=== PATIENT | female | born 1985 | race African-American/Black ===

== ENCOUNTER 2022-03-25 01:45 | Inpatient (IN) | payer SELFPAY ==
[2022-03-25] MEDS ORDERED: DIPHENHYDRAMINE 50 MG/ML VIAL ONE (02:04)
[2022-03-25] MEDS ORDERED: LORazepam 2 MG/ML VIAL ONE (02:04)
[2022-03-25 02:35] LABS: Absolute Lymphocytes (CBC) 1.1 K/uL (0.7-4.9); Hematocrit 37.9 % (36.0-45.0); Lymphocytes % 5.9 % (15.3-44.8); RBC Red Blood Cell Count 4.17 M/uL (3.86-4.86)
[2022-03-25 02:43] LABS: Protime INR 1.15
[2022-03-25 03:10] LABS: ALT/SGPT 42 U/L (12-78); AST/SGOT 160 U/L (15-37); Albumin 4.3 g/dL (3.4-5.0); Alkaline Phosphatase 66 U/L (45-117); BUN Blood Urea Nitrogen 21 mg/dL (7-18); Bicarbonate 25 mmol/L (21-32); Bilirubin Direct 0.4 mg/dL (0-0.2); Bilirubin Total 1.8 mg/dL (0.2-1.0); Glucose Level 94 mg/dL (74-106); Potassium 3.7 mmol/L (3.5-5.1); Protein, Total 8.3 g/dL (6.4-8.2); Sodium Level 137 mmol/L (136-145)
[2022-03-25] MEDS ORDERED: NA CHLORIDE 0.9% 1,000 ML ONE ×3 (04:55→14:37)
[2022-03-25 06:05] LABS: SARS-COV-2 RT PCR NEGATIVE (NEGATIVE)
--- NOTE | 2022-03-25 06:51 | ER ---
Nurse's Notes [facility] Name: Himanshu Salamanca Age: 36 yrs Sex: Female : 1985 Arrival Date: 03/25/2022 Time: 01:48 Bed 17 Private MD: Diagnosis: Altered mental status, unspecified;Rhabdomyolysis Presentation: 03/25 01:48 Chief complaint: EMS states: "She was [place]. She has cuts all over tw5 her feet and hands. It seems that she has been walking for a very long time.". Coronavirus screen: unknown. Ebola Screen: Unable to complete the Ebola screening because:. Initial Sepsis Screen: Does the patient meet any 2 criteria? HR > 90 bpm. Does the patient have a suspected source of infection? Yes: Skin breakdown/wound. Risk Assessment: Do you want to hurt yourself or someone else? Unable to obtain. Onset of symptoms is unknown. 01:48 Method Of Arrival: EMS: [facility] tw 01:48 Acuity: OMID 2 tw5 Triage Assessment: 01:52 General: Appears uncomfortable, unkempt, Behavior is agitated, anxious, restless, tw5 uncooperative. Pain: Unable to use pain scale. Patient is disoriented. Neuro: Level of Consciousness is confused. LABORER DEMOLITION: 01:52 unable to obtain tw5 Historical: - Allergies: 09:15 No Known Allergies; ko - Home Meds: :52 Unable to obtain [Active]; tw5 - PMHx: 07:29 Depressive disorder; Anxiety; ko 09:15 PTSD; ko - PSHx: :52 Unable to Obtain; tw5 - Immunization history:: Unable to assess. - Social history:: Smoking status: unknown. Screenin:21 Abuse screen: Unable to assess. Nutritional screening: Unable to assess, but given EMS otf report, yes.. Tuberculosis screening: Unable to assess. Fall Risk None identified. Assessment: 01:55 General: Patient placed in paper gown. tw5 02:01 Reassessment: The pt arrived via EMS \\T\\ 0130. The charge nurse was at bedside and helped otf get the pt in bed. The pt became agitated when registration came into the room, as at that time, the pt was sitting on the floor, in the corner. The MD placed orders that the charge nurse has and the float nurse is at bedside to assist. The dye house helper is also at bedside. 03:17 Reassessment: I've asked the charge nurse for report on the pt. She is sleeping and on otf the bedside monitor. 04:05 Reassessment: Given that the charge nurse is continuing to be needed in Trauma, I have otf gleaned as much info as possible, from the chart. The pt is sleeping with clear, even breaths. The medication was effective and I was able to perform the EKG on the pt. She has a drsg to her right hand and SLs bilaterally to her arms. Purportedly, the pt was "walking around the beach" for several days and people became concerned. I am unsure who called EMS, but she was brought via EMS. When she came in, she was emotionally labile, frightened, climbing out of the bed and cowering in the corner. The MD witnessed this and meds were ordered and given, by the charge nurse. The pt did not sound oriented, but it would be impossible to ascertain, when she was in that emotional state. Thankfully, the medication is still effective and she is resting well. She remains on the bedside monitor. 06:24 General: Attempted to call the father Monty Tucker [phone]. tw5 06:26 Reassessment: The pt is much more lucid, although, not wanting to talk very much. When otf asked where is she from, she responded,"I don't even know." She did tell me that she has two children. She is reluctant to talk, but calm and cooperative with getting labs, etc. I told her that we need a urine specimen and we provided her with a bsc, for ease. Vital Signs: 01:48 BP 136 / 83; Pulse 119; Pulse Ox 98% on R/A; tw5 03:18 BP 103 / 64; Pulse 97; Resp 16; Pulse Ox 100% on R/A; otf 04:25 BP 109 / 72; Pulse 94; Resp 14; Pulse Ox 100% on R/A; Pain 0/10; otf 05:09 BP 106 / 74; Pulse 95; Resp 14; Temp 99(TE); Pulse Ox 100% ; otf 06:14 BP 110 / 71; Pulse 89; Resp 15; Pulse Ox 100% on R/A; ke1 09:17 BP 120 / 85; Pulse 102; Resp 18; Pulse Ox 99% on R/A; ko 01:48 blood glucose 196 tw5 ED Course: 01:48 Patient arrived in ED. tw5 01:52 Triage completed. tw5 01:52 John Ayala MD is Attending Physician. mh7 01:52 Arm band placed on right wrist. tw5 02:24 Patient has correct armband on for positive identification. Placed in gown. Bed in low tw5 position. Side rails up X2. personnel monitor on. Pulse ox on. NIBP on. Door closed. Noise minimized. Moved to private room. Warm blanket given. Verbal reassurance given. 02:24 Initial lab(s) drawn, by me, sent to lab. Inserted saline lock: 20 gauge in right tw5 antecubital area, using aseptic technique. Blood collected. 02:24 Acetaminophen Sent. tw5 02:24 Basic Metabolic Panel Sent. tw5 02:25 CBC with Diff Sent. tw5 02:25 ETOH Level Sent. tw5 02:25 Salicylate Sent. tw5 02:25 Ptt, Activated Sent. tw5 02:25 PT-INR Sent. tw5 02:25 Hepatic Function Sent. tw5 02:53 CT Head Brain wo Cont In Process Unspecified. EDMS 04:05 Coby Bautista, RN is Primary Nurse. otf 04:22 No provider procedures requiring assistance completed. otf 05:08 COVID-19/FLU A+B (Document "Date of Onset" if Symptomatic) Sent. otf 05:08 CPK Sent. otf 06:25 called the [facility] ([place] in attempt to get some patient contact information/ eb information received given to charge and registration to update patient demographic. 06:25 AMMONIA Sent. otf 06:31 AMMONIA Sent. otf 06:48 Blood Culture Adult (2) Sent. otf 06:50 Jarrett Johnson MD is Hospitalizing Provider. 7 09:17 No apparent distress. Appears to be sleeping. ko Administered Medications: 01:57 CANCELLED (Physician Discretion): HALdol (haloperidol) 5 mg IVP once tw5 02:25 Drug: Benadryl (diphenhydrAMINE) 50 mg Route: IVP; Site: left antecubital; tw5 04:24 Follow up: Response: No adverse reaction; Anxiety decreased otf 02:25 Drug: Ativan (LORazepam) 2 mg Route: IVP; Site: left antecubital; tw5 04:24 Follow up: Response: Anxiety decreased otf 05:08 Drug: NS 0.9% 1000 ml Route: IV; Rate: 1000 ml; Site: left forearm; otf 06:25 Follow up: IV Status: Completed infusion otf 06:25 Drug: NS 0.9% 1000 ml Route: IV; Rate: 1000 ml; Site: left antecubital; otf 10:51 Follow up: IV Status: Completed infusion ko 10:51 Drug: Rocephin (cefTRIAXone) 1 grams Route: IV; Rate: per protocol; Site: right ko antecubital; 14:40 Follow up: IV Status: Completed infusion ko Outcome: 04:22 Condition: stable otf 06:50 Decision to Hospitalize by Provider. [facility] 22:09 Patient left the ED. kd3 Signatures: Dispatcher [employer] EDMS Elena Duran Maurice, MD MD [facility] Sahara Alvarado Geri Espino RN RN 3 Coby Bautista RN RN bo Au-Stager, Heather, RN RN Dinesh Rosales RN RN ke1 Corrections: (The following items were deleted from the chart) 01:52 01:52 Allergies: Ibuprofen; 07:31 01:52 PMHx: Unable to Obtain; 09:17 01:52 Allergies: Unable to obtain; 09:17 07:29 PMHx: Obesity; ko 09:17 09:15 Allergies: PTSD; ko ko
--- NOTE | 2022-03-25 06:51 | EDPHYS ---
Physician Documentation [facility] Name: Himanshu Salamanca Age: 36 yrs Sex: Female : 1985 Arrival Date: 03/25/2022 Time: 01:48 Bed 17 Private MD: ED Physician John Ayala HPI: 03/25 02:12 This 36 yrs old Female presents to ER via EMS with complaints of Altered Mental Status. mh7 02:12 The patient presents with agitation, confusion. mh7 02:12 Onset: The symptoms/episode began/occurred at an unknown time. Possible causes: mh7 unknown. Associated signs and symptoms: Pertinent positives: agitation. Current symptoms: In the emergency department the patient's symptoms are unchanged from the initial presentation. Per EMS, patient found wandering around beach. She appeared to be agitated and combative.. DIRECTOR GEOTHERMAL OPERATIONS: 01:52 unable to obtain tw5 Historical: - Allergies: 09:15 No Known Allergies; ko - Home Meds: :52 Unable to obtain [Active]; tw5 - PMHx: 07:29 Depressive disorder; Anxiety; ko 09:15 PTSD; ko - PSHx: 01:52 Unable to Obtain; tw5 - Immunization history:: Unable to assess. - Social history:: Smoking status: unknown. ROS: 02:12 Unable to obtain ROS due to patient being uncooperative. mh7 Exam: 02:12 Constitutional: This is a well developed, well nourished patient who is awake, alert, mh7 and in no acute distress. Head/Face: Normocephalic, atraumatic. Eyes: Pupils equal round and reactive to light, extra-ocular motions intact. Lids and lashes normal. Conjunctiva and sclera are non-icteric and not injected. Cornea within normal limits. Periorbital areas with no swelling, redness, or edema. Neck: Trachea midline, no thyromegaly or masses palpated, and no cervical lymphadenopathy. Supple, full range of motion without nuchal rigidity, or vertebral point tenderness. No Meningismus. Chest/axilla: Normal chest wall appearance and motion. Nontender with no deformity. No lesions are appreciated. 02:12 Respiratory: Lungs have equal breath sounds bilaterally, clear to auscultation and percussion. No rales, rhonchi or wheezes noted. No increased work of breathing, no retractions or nasal flaring. Abdomen/GI: Soft, non-tender, with normal bowel sounds. No distension or tympany. No guarding or rebound. No evidence of tenderness throughout. Back: No spinal tenderness. No costovertebral tenderness. Full range of motion. Skin: Warm, dry with normal turgor. Normal color with no rashes, no lesions, and no evidence of cellulitis. MS/ Extremity: Pulses equal, no cyanosis. Neurovascular intact. Full, normal range of motion. 02:12 Constitutional: The patient appears anxious, restless. 02:12 Cardiovascular: Rate: tachycardic, Rhythm: regular, Pulses: no pulse deficits are appreciated, Heart sounds: normal, normal S1and S2, Edema: is not appreciated, JVD: is not appreciated. 02:12 Neuro: Orientation: unable to test, the patient refuses to cooperate, Mentation: unable to test, the patient refuses to cooperate, Memory: unable to test, the patient refuses to cooperate, Cranial nerves: unable to test, the patient refuses to cooperate, Cerebellar function: unable to test, the patient refuses to cooperate, Motor: is normal, Sensation: no obvious gross deficits, Gait: not tested. seizure activity, is not displayed by the patient, Abnormal movements: there are no abnormal movements. 02:12 Psych: Behavior/mood is anxious, aggressive, uncooperative, Affect is animated, Judgement / Insight is impaired. Vital Signs: 01:48 BP 136 / 83; Pulse 119; Pulse Ox 98% on R/A; tw5 03:18 BP 103 / 64; Pulse 97; Resp 16; Pulse Ox 100% on R/A; otf 04:25 BP 109 / 72; Pulse 94; Resp 14; Pulse Ox 100% on R/A; Pain 0/10; otf 05:09 BP 106 / 74; Pulse 95; Resp 14; Temp 99(TE); Pulse Ox 100% ; otf 06:14 BP 110 / 71; Pulse 89; Resp 15; Pulse Ox 100% on R/A; ke1 09:17 BP 120 / 85; Pulse 102; Resp 18; Pulse Ox 99% on R/A; ko 01:48 blood glucose 196 tw5 MDM: 06:49 Differential Diagnosis: electrolyte abnormality, alcohol intoxication, hypoglycemia, mh7 intracranial bleed, overdose, UTI, volume depletion. Data reviewed: vital signs, nurses notes, EMS record, lab test result(s), CBC, electrolytes, Flu: negative EKG, radiologic studies, CT scan. Data interpreted: Pulse oximetry: on room air is 100 %. Interpretation: normal. Counseling: I had a detailed discussion with the patient and/or guardian regarding: the historical points, exam findings, and any diagnostic results supporting the discharge/admit diagnosis, lab results, radiology results, the need for further work-up and treatment in the hospital. Response to treatment: the patient's symptoms have mildly improved after treatment. 06:50 Patient medically screened. [facility] 03/25 02:07 Order name: Acetaminophen; Complete Time: 03:12 [facility] 03/25 02:07 Order name: Basic Metabolic Panel; Complete Time: 03:12 [facility] 03/25 02:07 Order name: CBC with Diff; Complete Time: 03:12 [facility] 03/25 02:07 Order name: ETOH Level; Complete Time: 03:12 [facility] 03/25 02:07 Order name: Hepatic Function; Complete Time: 03:12 [facility] 03/25 02:07 Order name: PT-INR; Complete Time: 03:12 [facility] 03/25 02:07 Order name: Ptt, Activated; Complete Time: 03:12 [facility] 03/25 02:07 Order name: Salicylate; Complete Time: 03:12 [facility] 03/25 02:07 Order name: Urine Drug Screen; Complete Time: 19:47 [facility] 03/25 04:48 Order name: CPK; Complete Time: 06:02 [facility] 03/25 04:57 Order name: COVID-19/FLU A+B (Document "Date of Onset" if Symptomatic); Complete Time: [facility] 06:03/25 05:32 Order name: AMMONIA; Complete Time: 06:48 [facility] 03/25 06:24 Order name: Urine Culture [facility] 03/25 06:29 Order name: Blood Culture Adult (2) [facility] 03/25 02:11 Order name: CT Head Brain wo Cont [facility] 03/25 10:19 Order name: Urine Dipstick-Ancillary; Complete Time: 19:47 EDMS 03/25 10:22 Order name: Urine --Ancillary (enter results); Complete Time: 19:47 eb 03/25 10:23 Order name: CBC with Automated Diff [facility] 03/25 10:23 Order name: CBC with Automated Diff [facility] 03/25 10:23 Order name: Comprehensive Metabolic Panel [facility] 03/25 10:23 Order name: Comprehensive Metabolic Panel [facility] 03/25 10:23 Order name: Creatine Phosphokinase [facility] 03/25 10:23 Order name: Creatine Phosphokinase [facility] 03/25 10:23 Order name: Creatine Phosphokinase [facility] 03/25 10:23 Order name: Creatine Phosphokinase [facility] 03/25 10:23 Order name: Lipid Profile [facility] 03/25 10:23 Order name: Lipid Profile [facility] 03/25 02:07 Order name: EKG; Complete Time: 02:08 [facility] 03/25 02:07 Order name: EKG - Nurse/Tech; Complete Time: 04:23 [facility] 03/25 02:07 Order name: IV Saline Lock; Complete Time: 02:24 [facility] 03/25 02:07 Order name: Labs collected and sent; Complete Time: 02:24 [facility] 03/25 02:07 Order name: Urine Dipstick-Ancillary (obtain specimen); Complete Time: 10:52 [facility] 03/25 02:07 Order name: Urine Test (obtain specimen); Complete Time: 10:52 [facility] 03/25 09:12 Order name: Diet Floor Stock; Complete Time: 09:13 03/25 10:23 Order name: CONS Physician Consult [facility] Administered Medications: 01:57 CANCELLED (Physician Discretion): HALdol (haloperidol) 5 mg IVP once tw5 02:25 Drug: Benadryl (diphenhydrAMINE) 50 mg Route: IVP; Site: left antecubital; tw5 04:24 Follow up: Response: No adverse reaction; Anxiety decreased otf 02:25 Drug: Ativan (LORazepam) 2 mg Route: IVP; Site: left antecubital; tw5 04:24 Follow up: Response: Anxiety decreased otf 05:08 Drug: NS 0.9% 1000 ml Route: IV; Rate: 1000 ml; Site: left forearm; otf 06:25 Follow up: IV Status: Completed infusion otf 06:25 Drug: NS 0.9% 1000 ml Route: IV; Rate: 1000 ml; Site: left antecubital; otf 10:51 Follow up: IV Status: Completed infusion ko 10:51 Drug: Rocephin (cefTRIAXone) 1 grams Route: IV; Rate: per protocol; Site: right ko antecubital; 14:40 Follow up: IV Status: Completed infusion ko Disposition Summary: 03/25/22 06:50 Hospitalization Ordered Hospitalization Status: Inpatient Admission [facility] Provider: Jarrett Johnson Condition: Stable mh7 Problem: new mh7 Symptoms: have improved 7 Bed/Room Type: [place] [id number] Location: Intensive Care Unit(03/25/22 20:11) cg Room Assignment: 5-(03/25/22 20:11) cg Diagnosis - Altered mental status, unspecified mh7 - Rhabdomyolysis [facility] Forms: - Medication Reconciliation Form mh7 - SBAR form 7 Signatures: Dispatcher [employer] EDJudy Morales RN RN Shailesh Fong PA PA cp Garcia, Cindy, RN RN John Ayala MD MD [facility] Sahara Alvarado Coby Bautista RN RN otf Amy Anderson RN RN ha Corrections: (The following items were deleted from the chart) 01:52 01:52 Allergies: Ibuprofen; 01:57 01:57 HALdol (haloperidol) 5 mg IVP once ordered. 07:31 01:52 PMHx: Unable to Obtain; 09:17 01:52 Allergies: Unable to obtain; ko 09:17 07:29 PMHx: Obesity; ko 09:17 09:15 Allergies: PTSD; [facility] 17:38 06:50 Telemetry/MedSurg (Inpatient) 7 iw 17:38 06:50 mh7 iw 20:11 17:38 [facility] ER HOLD iw cg 20:11 17:38 ERHOLD- iw cg
[2022-03-25] MEDS ORDERED: ONDANSETRON 4 MG/2 ML VIAL IV PRN (10:18)
[2022-03-25] MEDS ORDERED: ALBUTEROL 2.5 MG/3 ML NEB SOL NEB PRN (10:18)
[2022-03-25] MEDS ORDERED: ACETAMINOPHEN 500 MG TAB PO PRN (10:18)
--- NOTE | 2022-03-25 10:18 | P.HP ---
Certification for Inpatient With expected LOS: >2 Midnights Patient will require the following post-hospital care: None Practitioner: I am a practitioner with admitting privileges, knowledge of patient current condition, hospital course, and medical plan of care. Services: Services provided to patient in accordance with Admission requirements found in Title 42 Section 412.3 of the Code of Federal Regulations Patient History Date of Service: 03/25/22 Reason for admission: Confused History of Present Illness: 36-year-old -[place] female with no known past medical history brought in by police after being found confused and wandering around by the [place]. Patient was initially agitated but became calm on arrival in the ED. She is still markedly confused unable to adequately give history. She states she lives in [place] and she is unsure how she moved to [place]. She later states she sees a doctor at the [facility]. She is unable to tell any other reasonable history. She speaks randomly and does not always appear to be answer questions. On arrival in the ED urine drug screen pending, serum alcohol level was less than 10. She was noted with marked rhabdomyolysis with CK of greater than 12,000. She was also noted with significant bruise and abrasion of the feet. She is having significant pain on attempt to move the feet. She has been admitted for acute confusional state with rhabdomyolysis Home medications list reviewed: No - Past Medical/Surgical History Has patient received pneumonia vaccine in the past: No Diabetic: No Past Medical History: Unable to obtain Past Surgical History: Unable to obtain - Social History Smoking Status: Never smoker Alcohol use: No CD- Drugs: No Place of Residence: Home Review of Systems is unable to be obtained Physical Examination - Physical Exam General: Alert, In no apparent distress, Oriented x1, Confused HEENT: Atraumatic, Normocephalic, PERRLA Neck: Supple, 2+ carotid pulse no bruit, JVD not distended Respiratory: Clear to auscultation bilaterally, Normal air movement Cardiovascular: No edema, Normal pulses, Regular rate/rhythm, Normal S1 S2 Gastrointestinal: Normal bowel sounds, Soft and benign, Non-distended, No ascites, No masses Musculoskeletal: No swelling, No erythema Integumentary: Other (multiple abrasions with weeping on both toes gigits and right dorsum , tenderness ) Neurological: Normal speech, Cranial nerves 3-12 intact - Studies Laboratory Data (last 24 hrs) 03/25/22 02:21: PT 12.7 H, INR 1.15, APTT 26.7 03/25/22 02:21: WBC 18.5 H, Hgb 12.9, Hct 37.9, Plt Count 204 03/25/22 02:21: Sodium 137, Potassium 3.7, BUN 21 H, Creatinine 1.31 H, Glucose 94, Total Bilirubin 1.8 H, AST 160 H, ALT 42, Alkaline Phosphatase 66 Assessment and Plan - Advance Directives Does patient have a Living Will: No Does patient have a Durable POA for Healthcare: No - Code Status/Comfort Care Code Status Assessed: Yes Code Status: Full Code Physician Review: Patient Assessed, Agree with Above Assessment and Plan Physician Review Additional Text: Impression Acute confusional state Rhabdomyolysis Toe digits ulcer/wounds Leukocytosislikely due to wounds in feet Plan Follow urine drug screen May need psych evaluation Start aggressive normal saline for rhabdomyolysis Might need dose Lasix Alkalinize urinestart sodium bicarb p.o. Start empirical antibiotics for multiple abrasion with weeping surfaces on 2 digits -Wound dressing as well as topical antibiotics to lesions Geodon IM as needed agitation IV Ativan as needed anxiety Subcu to Lovenox for DVT prophylaxis As needed pain regimen Disposition possible hospital stay for 2 to 3 days Critical Care: No Time Spent Managing Pts Care (In Minutes): 70
[2022-03-25 10:19] LABS: Urine Blood 3+ (Negative); Urine Glucose Negative (Negative); Urine Protein 2+ (Negative); Urine Specific Gravity >=1.030 (1.005-1.030); Urine pH 5.5 (5.0-7.0)
[2022-03-25] MEDS ORDERED: LORazepam 2 MG/ML VIAL IV PRN (10:20)
[2022-03-25] MEDS ORDERED: ZIPRASIDONE MESYLA 20 MG/VIAL IM PRN (10:20)
[2022-03-25] MEDS ORDERED: WATER FOR INJ,STERILE 10 ML IM PRN (10:20)
[2022-03-25] MEDS ORDERED: HYDRALAZINE HCL 20 MG/ML VIAL IV PRN (10:21)
[2022-03-25 10:48] LABS: Barbiturates NEGATIVE (NEGATIVE); Benzodiazepines NEGATIVE (NEGATIVE); Cocaine NEGATIVE (NEGATIVE); METHAMPHETAM POSITIVE (NEGATIVE); Methadone NEGATIVE (NEGATIVE); Opiates NEGATIVE (NEGATIVE); Phencyclidine NEGATIVE (NEGATIVE); THC Cannibis POSITIVE (NEGATIVE)
[2022-03-25] MEDS ORDERED: CEFTRIAXONE 1000 MG/VIAL ONE (10:49)
[2022-03-25] MEDS: NA CHLORIDE 0.9% 1,000 ML IV SCH ×2 (11:00→22:55)
[2022-03-25 12:29] VITALS: BMI 27.2
[2022-03-25] MEDS: ENOXAPARIN 30 MG/0.3 ML SQ SCH (14:42)
[2022-03-25] MEDS ORDERED: MORPHINE 2 MG/ML SYR ONE (20:18)
[2022-03-25] MEDS: MORPHINE 2 MG/ML SYR IV PRN (20:21)
[2022-03-25] MEDS ORDERED: BACITRACIN/POLYMYXIN TOPICAL OINT TOP SCH (21:00)
[2022-03-25] MEDS: BACI/NEOMYCIN/POLY OINT 15GM TOP SCH (21:00)
[2022-03-25 22:24] VITALS: O2SAT 99
[2022-03-25] MEDS: SODIUM BICARB 325 MG TAB PO SCH (22:55)
[2022-03-26] MEDS: MORPHINE 2 MG/ML SYR IV PRN ×3 (01:12→20:53)
[2022-03-26 05:04] LABS: Hematocrit 31.6 % (36.0-45.0); Lymphocytes % 20.5 % (15.3-44.8); MPV 8.9 fL (7.6-11.3); RBC Red Blood Cell Count 3.41 M/uL (3.86-4.86)
[2022-03-26 05:41] LABS: ALT/SGPT 40 U/L (12-78); AST/SGOT 117 U/L (15-37); Alkaline Phosphatase 49 U/L (45-117); BUN Blood Urea Nitrogen 14 mg/dL (7-18); Bicarbonate 25 mmol/L (21-32); Bilirubin Total 1.4 mg/dL (0.2-1.0); Glucose Level 84 mg/dL (74-106); HDL Cholesterol 69 mg/dL (40-60); LDL Cholesterol, Calculated 35 mg/dL (<130); Potassium 3.4 mmol/L (3.5-5.1); Protein, Total 6.1 g/dL (6.4-8.2); Sodium Level 140 mmol/L (136-145)
[2022-03-26 05:43] LABS: Creatine Phosphokinase 7003 U/L (26-192)
[2022-03-26] MEDS: CEFTRIAXONE 1,000 MG in NA CHLORIDE 0.9% 50 ML IVPB SCH (08:52)
[2022-03-26] MEDS: SODIUM BICARB 325 MG TAB PO SCH ×2 (08:53→20:55)
[2022-03-26] MEDS: NA CHLORIDE 0.9% 1,000 ML IV SCH ×3 (08:53→20:53)
[2022-03-26] MEDS: BACI/NEOMYCIN/POLY OINT 15GM TOP SCH ×2 (08:53→21:00)
--- NOTE | 2022-03-26 11:53 | RAD REPORT ---
EXAM DESCRIPTION: Head Brain Wo Cont 03/25/2022 3:01 AM CDT CLINICAL HISTORY: 36 years, Female, Mental status change, unknown cause COMPARISON: None. FINDINGS: Multiple transaxial tomograms of the brain were obtained from the base of the skull to the vertex without contrast. 2-D multiplanar reformats and the coronal and sagittal plane were performed and reviewed. This exam was performed according to our departmental dose-optimization protocol, which includes auto mated exposure control, adjustment of the mA and/or kV according to patient size and/or use of iterat darrel reconstruction technique. Brain parenchyma as well as the hilton and white matter differentiation demonstrate to be unremarkable. There is no midline shift and/or mass effect. There is no evidence for acute hemorrhage. No focal ar eas of hypodensities. Lateral ventricles and cisterns displace normal appearance. No intra or ext ra axial fluid collections were seen. The calvarium is intact with no evidence for fracture. The visu alized portions of the paranasal sinuses and orbits demonstrate to be clear. IMPRESSION: NO ACUTE INTRACRANIAL HEMORRHAGE. UNREMARKABLE CT SCAN OF THE HEAD WITHOUT CONTRAST. Electronically signed by: Bryan Patel MD 03/25/2022 3:02 AM CDT Due to temporary technical issues with the PACS/Fluency reporting system, reports are being signed by the in house radiologist without review as a courtesy to ensure prompt reporting. The interpreting r adiologist is fully responsible for the content of the report.
[2022-03-26 16:56] VITALS: TEMP 97.6
[2022-03-26] MEDS: ENOXAPARIN 30 MG/0.3 ML SQ SCH (17:06)
--- NOTE | 2022-03-26 18:22 | P.CNS ---
Date of Consult: 03/26/22 Reason for Consult: Rhabdomyolysis, parish. Requesting Physician: Jarrett Johnson Chief Complaint: Confused History of Present Illness: 36-year-old -[place] female with no known past medical history brought in by police after being found confused [place]. Patient was initially agitated but became calm on arrival in the ED. She is still markedly confused unable to adequately give history. She states she lives in [place] and she is unsure how she moved to [place]. She later states she sees a doctor at the [facility]. She is unable to tell any other reasonable history. She speaks randomly and does not always appear to be answer questions. On arrival in the ED urine drug screen pending, serum alcohol level was less than 10. She was noted with marked rhabdomyolysis with CK of greater than 12,000. S he was also noted with significant bruise and abrasion of the feet. She is having significant pain on attempt to move the feet. She has been admitted for acute confusional state with rhabdomyolysis Allergies No Known Allergies Allergy (Unverified 03/25/22 12:59) - Past Medical/Surgical History Diabetic: No - Social History Smoking Status: Unknown if ever smoked Alcohol use: No CD- Drugs: No Caffeine use: No Place of Residence: Homeless Review of Systems General: Weakness, Malaise Eyes: Unremarkable ENT: Unremarkable Respiratory: Unremarkable Cardiovascular: Unremarkable Gastrointestinal: Unremarkable Genitourinary: Unremarkable Musculoskeletal: Unremarkable Integumentary: Unremarkable Neurological: Weakness, Confusion Physical Examination Temp Pulse Resp BP Pulse Ox 97.6 F 80 18 137/66 100 03/26/22 16:00 03/26/22 12:00 03/26/22 08:00 03/26/22 12:00 03/26/22 12:00 General: Alert HEENT: Atraumatic, Normocephalic Neck: Supple Respiratory: Normal air movement Cardiovascular: Regular rate/rhythm, Normal S1 S2 Gastrointestinal: Soft and benign Musculoskeletal: No swelling Neurological: Normal speech Conclusions/Impression: Acute confusional state AKIresolving Rhabdomyolysisresolving Volume depletion Toxic/metabolic encephalopathy Plan: Creatinine is much improved at 0.75 from 1.3. Will continue aggressive IV fluid for hydration. CPK is much improved to 5900 from 12,900. Will follow trend closely on daily basis. Continue aggressive hydration. We will continue IV fluid to address rhabdomyolysis. Will follow symptomatology.
[2022-03-27] MEDS: MORPHINE 2 MG/ML SYR IV PRN (07:07)
[2022-03-27] MEDS: CEFTRIAXONE 1,000 MG in NA CHLORIDE 0.9% 50 ML IVPB SCH (08:07)
[2022-03-27] MEDS: SODIUM BICARB 325 MG TAB PO SCH (08:08)
[2022-03-27] MEDS: BACI/NEOMYCIN/POLY OINT 15GM TOP SCH (08:08)
[2022-03-27 11:35] VITALS: BP 133/70
== END 2022-03-27 11:30 | disposition home or self-care (01) | DRG 682 ==
LOC: ER 01:45 → ERHOLD 10:19 → 3RD-ICU 21:45
PROVIDERS: ADMIT Internal Medicine; ATTEND Internal Medicine
DX: N17.9 Acute kidney failure, unspecified (principal); G92.8 Other toxic encephalopathy; M62.82 Rhabdomyolysis; E86.9 Volume depletion, unspecified; S90.812A Abrasion, left foot, initial encounter; S90.811A Abrasion, right foot, initial encounter; X58.XXXA Exposure to other specified factors, initial encounter; Y92.9 Unspecified place or not applicable; Z20.822 Contact with and (suspected) exposure to COVID-19
CPT/HCPCS: 0240U; 36415; 70450; 80048; 80053; 80061; 80076; 80307; 80320; 80329; 81003; 81025; 82140; 82550; 85025; 85610; 85730; 87040; 87086; 87088; 93005; 96361; 96365; 96366; 96375; 99285; J0360; J1200; J1650; J2270; J7030